=== PATIENT | female | born 1970 | race Caucasian/White ===

== ENCOUNTER 2017-04-03 08:01 | Emergency (ER) | payer OTHER ==
[~2017-04-03] VITALS: Ht 162.6 cm; Wt 79.6 kg
[2017-04-03] MEDS ORDERED: OXYCODONE HCL30 MG PO (08:19)
[2017-04-03] MEDS ORDERED: OXYCONTIN40 MG PO (08:19)
[2017-04-03] MEDS ORDERED: SUMATRIPTAN SU100 MG PO (08:20)
[2017-04-03] MEDS ORDERED: KENLAOG,ARISTOC60 ML TP (08:40)
[2017-04-03] MEDS ORDERED: MEDROL DOSEPAK4 MG PO (08:40)
[2017-04-03] MEDS ORDERED: ATARAX,VISTARIL50 MG PO (08:40)
[2017-04-03 09:27] VITALS: BP 140/101
== END 2017-04-03 09:28 | disposition home or self-care (01) ==
LOC: EME 08:01
DX: L23.7 Allergic contact dermatitis due to plants, except food (principal); F17.200 Nicotine dependence, unspecified, uncomplicated
CPT/HCPCS: 99281; 99284; J7512; Q0177

== ENCOUNTER 2017-09-01 14:04 | Emergency (ER) | payer OTHER ==
[~2017-09-01] VITALS: Ht 162.6 cm; Wt 82.7 kg
[~2017-09-01 14:04] MED LIST: ATARAX,VISTARIL50 MG PO; KENLAOG,ARISTOC60 ML TP; MEDROL DOSEPAK4 MG PO; OXYCODONE HCL30 MG PO; OXYCONTIN40 MG PO; SUMATRIPTAN SU100 MG PO
[2017-09-01 15:07] LABS: HEMATOCRIT 45.6 % (36.0-46.0); MCHC 35.1 G/DL (30.0-36.0); MCV 85.6 FL (83-99); PLATELET COUNT 276 K/uL (156-360); RBC DIS.WIDTH-CV 12.5 % (11.8-14.6); RBC DIS.WIDTH-SD 38.5 % (39-53); RED BLOOD COUNT 5.33 M/uL (3.80-5.20)
[2017-09-01 15:17] LABS: ALBUMIN 4.5 g/dL (3.2-4.8)
[2017-09-01 15:18] LABS: CHLORIDE 106 mEq/L (99-109); POTASSIUM 4.1 mEq/L (3.7-5.4); SODIUM 138 mEq/L (136-147)
[2017-09-01 15:20] LABS: GLUCOSE 93 mg/dL (70-99); TOTAL PROTEIN 7.8 g/dL (6.4-8.3)
[2017-09-01 15:22] LABS: TOTAL BILIRUBIN 0.4 mg/dL (0.0-1.0)
[2017-09-01 15:23] LABS: ALKALINE PHOSPHATASE 110 IU/L (3-129)
[2017-09-01 15:24] LABS: CREATININE 0.7 mg/dL (0.6-1.3); GFR ESTIMATE (CALCULATED) > 59 mL/min/
[2017-09-01 15:26] LABS: ALT (GPT) 29 IU/L (3-49); AST (GOT) 19 IU/L (2-34); UREA NITROGEN (BUN) 8 mg/dL (9-23)
[2017-09-01 15:45] LABS: QUANTITATIVE HCG < 4.0 MIU/ML
[2017-09-01 15:51] LABS: APPEARANCE SL.HAZY ((CLEAR)); BILIRUBIN NEGATIVE; BLOOD NEGATIVE; COLOR YELLOW ((YELLOW)); GLUCOSE (STRIP) NEGATIVE; KETONES NEGATIVE; LEUKOCYTES NEGATIVE; NITRITE NEGATIVE; PROTEIN (STRIP) NEGATIVE; UROBILINOGEN 0.2 MG/DL (0.2-1.0)
[2017-09-01 15:57] LABS: BACTERIA RARE /HPF; EPITHELIAL CELLS 3+ /HPF; HYALINE CASTS 0-5 /LPF; MUCUS TRACE /LPF; RED BLOOD CELLS 0-5 /HPF (0-5); UCUL ADDED? NO; WHITE BLOOD CELLS 0-5 /HPF (0-5)
[2017-09-01 17:07] LABS: LIPASE 27 U/L (1.0-51.0)
[2017-09-01] MEDS ORDERED: BENTYL20 MG PO (18:20)
[2017-09-01] MEDS ORDERED: ZOFRAN ODT8 MG PO (18:20)
[2017-09-01 18:33] VITALS: BP 136/78
== END 2017-09-01 18:33 | disposition home or self-care (01) ==
LOC: EME 14:04
DX: K52.9 Noninfective gastroenteritis and colitis, unspecified (principal); N20.0 Calculus of kidney; K57.30 Diverticulosis of large intestine without perforation or abscess without bleeding; K42.9 Umbilical hernia without obstruction or gangrene; Z87.442 Personal history of urinary calculi; Z90.49 Acquired absence of other specified parts of digestive tract; Z90.711 Acquired absence of uterus with remaining cervical stump; M51.37 Other intervertebral disc degeneration, lumbosacral region; F17.200 Nicotine dependence, unspecified, uncomplicated
CPT/HCPCS: 74176; 80053; 81003; 83690; 84702; 85027; 99281; 99285; J1885; J2405; J3010; J7030

== ENCOUNTER 2018-01-07 22:35 | Emergency (ER) | payer OTHER ==
[~2018-01-07] VITALS: Ht 162.6 cm; Wt 81.2 kg
[~2018-01-07 22:35] MED LIST changes: +BENTYL20 MG PO; +ZOFRAN ODT8 MG PO
[2018-01-07 23:27] LABS: HEMATOCRIT 40.3 % (36.0-46.0); HEMOGLOBIN 14.3 G/DL (11.9-15.5); MCH 30.8 PG (29.0-34.0); MCHC 35.5 G/DL (30.0-36.0); MCV 86.9 FL (83-99); PLATELET COUNT 258 K/uL (156-360); RBC DIS.WIDTH-CV 12.5 % (11.8-14.6); RBC DIS.WIDTH-SD 39.7 % (39-53); RED BLOOD COUNT 4.64 M/uL (3.80-5.20); WHITE BLOOD COUNT 11.5 K/uL (4.1-10.2)
[2018-01-07 23:37] LABS: ALBUMIN 4.1 g/dL (3.2-4.8); CHLORIDE 104 mEq/L (99-109); POTASSIUM 3.6 mEq/L (3.7-5.4); SODIUM 139 mEq/L (136-147)
[2018-01-07 23:39] LABS: GLUCOSE 110 mg/dL (70-99); TOTAL PROTEIN 6.9 g/dL (6.4-8.3)
[2018-01-07 23:39] LABS: APPEARANCE SL.HAZY ((CLEAR)); BILIRUBIN NEGATIVE; BLOOD NEGATIVE; COLOR YELLOW ((YELLOW)); GLUCOSE (STRIP) NEGATIVE; KETONES NEGATIVE; LEUKOCYTES NEGATIVE; NITRITE NEGATIVE; PROTEIN (STRIP) NEGATIVE; SPECIFIC GRAVITY 1.013 (1.000-1.030); UROBILINOGEN 0.2 MG/DL (0.2-1.0)
[2018-01-07 23:41] LABS: TOTAL BILIRUBIN 0.4 mg/dL (0.0-1.0)
[2018-01-07 23:43] LABS: ALKALINE PHOSPHATASE 101 IU/L (3-129); CREATININE 0.7 mg/dL (0.6-1.3); GFR ESTIMATE (CALCULATED) > 59 mL/min/
[2018-01-07 23:44] LABS: UREA NITROGEN (BUN) 7 mg/dL (9-23)
[2018-01-07 23:45] LABS: AST (GOT) 24 IU/L (2-34)
[2018-01-07 23:45] LABS: BACTERIA RARE /HPF; EPITHELIAL CELLS 2+ /HPF; MUCUS TRACE /LPF; RED BLOOD CELLS 0-5 /HPF (0-5); UCUL ADDED? NO; WHITE BLOOD CELLS 0-5 /HPF (0-5)
[2018-01-07 23:46] LABS: ALT (GPT) 25 IU/L (3-49); LIPASE 38 U/L (1.0-51.0)
[2018-01-07 23:55] LABS: QUANTITATIVE HCG < 4.0 MIU/ML
[2018-01-08 01:25] VITALS: BP 147/93
== END 2018-01-08 01:28 | disposition home or self-care (01) ==
LOC: EME 22:35
PROVIDERS: Physician Assistant
DX: R10.9 Unspecified abdominal pain (principal); R11.0 Nausea; N85.8 Other specified noninflammatory disorders of uterus; N20.0 Calculus of kidney; M54.5 Low back pain; G89.29 Other chronic pain; M51.37 Other intervertebral disc degeneration, lumbosacral region; F17.200 Nicotine dependence, unspecified, uncomplicated; Z87.442 Personal history of urinary calculi; Z90.49 Acquired absence of other specified parts of digestive tract; Z90.710 Acquired absence of both cervix and uterus; Z88.2 Allergy status to sulfonamides
CPT/HCPCS: 74176; 80053; 81003; 83690; 84702; 85027; 99281; 99284